=== PATIENT | female | born 1970 | race Caucasian/White ===

== ENCOUNTER → 2016-09-21 | Outpatient (CLI) | payer BC ==
[~2016-09-21] MED LIST: ATORVASTATIN CA40 MG PO; CHLORTHALIDONE25 MG PO; COZAAR100 MG PO; DICLOFENAC PO
[2016-09-21 12:59] LABS: CHOLESTEROL 195 mg/dL (0-200); GLUCOSE FASTING 100 mg/dL (70-110); HDL CHOLESTEROL 60 mg/dL (35-95); LDL CHOLESTEROL 112 mg/dL (-130); LDL/HDL RATIO 2 RATIO (0-4); TRIGLYCERIDES 114 mg/dL (10-160)
== END | disposition home or self-care (01) ==
LOC: CBAR 08:06 → CLAB 11:49
PROVIDERS: Surgery
DX: E66.01 Morbid (severe) obesity due to excess calories (principal)
CPT/HCPCS: 36415; 76000; 80061; 82947